=== PATIENT | female | born 1960 | race Caucasian/White ===

== ENCOUNTER 2024-11-18 08:29 | Emergency (ER) | payer BC, MEDICAID ==
[~2024-11-18] VITALS: Ht 162.6 cm; Wt 49.0 kg
[2024-11-18 08:32] VITALS: TEMP 36.7; O2SAT 99
[2024-11-18] MEDS: IBUPROFEN 400MG TABLET PO ONE ×2 (09:59→15:37)
[2024-11-18] MEDS: HYDROCODONE/ACETAMINOPHEN 5/325MG TABLET PO ONE ×2 (10:00→15:37)
[2024-11-18] MEDS ORDERED: HYDR-4001 MT (15:20)
[2024-11-18] MEDS ORDERED: IBUP-1523 MT (15:20)
[2024-11-18 15:37] VITALS: BP 96/71; PULSE 76; RESP 16
== END 2024-11-18 15:39 | disposition home or self-care (01) ==
LOC: ER 08:40 → EDBD 08:40 → ER 15:39
DX: S43.002A Unspecified subluxation of left shoulder joint, initial encounter (principal); W10.9XXA Fall (on) (from) unspecified stairs and steps, initial encounter; Y93.89 Activity, other specified; Y92.89 Other specified places as the place of occurrence of the external cause; Y99.8 Other external cause status
CPT/HCPCS: 73030; 73502; 99284